=== PATIENT | female | born 1995 | race Caucasian/White ===

== ENCOUNTER → 2016-11-08 | Outpatient (CLI) | payer BC | END | disposition home or self-care (01) | LOC: CDC 10:47 | DX: Z01.818 Encounter for other preprocedural examination (principal); E66.01 Morbid (severe) obesity due to excess calories | CPT/HCPCS: 93000 ==

== ENCOUNTER 2016-11-21 05:41 | Inpatient (IN) | payer BC ==
[~2016-11-21] VITALS: Ht 165.1 cm; Wt 138.4 kg
[2016-11-21 06:07] LABS: POINT-OF-CARE METER ID UU14174212
[2016-11-21 06:14] VITALS: BP 165/85
[2016-11-21 07:22] LABS: METH RESISTANT S AUREUS PCR NEGATIVE (NEGATIVE); PROBE CHECK PASS; SPECIMEN PROCESSING CONTROL PASS
[2016-11-21 12:11] LABS: POINT-OF-CARE METER ID UU13113675
[2016-11-21 13:14] VITALS: BP 130/71
[2016-11-21 15:40] VITALS: BP 116/58
[2016-11-21 19:13] VITALS: BP 128/74
[2016-11-21 22:42] VITALS: BP 126/60
[2016-11-21 23:45] VITALS: BP 126/60
[2016-11-22 03:15] VITALS: BP 133/73
[2016-11-22 06:37] LABS: HEMATOCRIT 37.1 % (36.0-46.0); MCH 27.7 PG (29.0-34.0); MCHC 34.5 G/DL (30.0-36.0); MCV 80.3 FL (83-99); MEAN PLAT.VOLUME 11.3 uM^3 (9.5-12.4); PLATELET COUNT 264 K/uL (156-360); RBC DIS.WIDTH-CV 13.3 % (11.8-14.6); RBC DIS.WIDTH-SD 38.6 % (39-53); RED BLOOD COUNT 4.62 M/uL (3.80-5.20)
[2016-11-22 06:43] LABS: WHITE BLOOD COUNT 11.4 K/uL (4.1-10.2)
[2016-11-22 07:00] VITALS: BP 140/80
[2016-11-22 07:06] LABS: ANION GAP 10 MEQ/L (2-14); CHLORIDE 105 MEQ/L (99-109); GFR ESTIMATE (CALCULATED) > 59 mL/min/; GLUCOSE 112 mg/dL (70-99); MAGNESIUM 1.8 mg/dl (1.3-2.7); POTASSIUM 3.9 MEQ/L (3.7-5.4); SAMPLE HEMOLYSIS CHECK 0; SAMPLE ICTERIC CHECK 0; SAMPLE LIPEMIA CHECK 0; SODIUM 142 MEQ/L (136-147); UREA NITROGEN (BUN) 8 mg/dL (9-23)
[2016-11-22] MEDS ORDERED: ZOFRAN ODT4 MG PO (08:48)
[2016-11-22] MEDS ORDERED: HYDROCODON-ACE1 EAC7 PO (08:48)
[2016-11-22 09:30] VITALS: BP 140/80
== END 2016-11-22 11:43 | disposition home or self-care (01) | DRG 621 ==
LOC: 2SOUTH 05:41 → 2EAST 13:10 → 2SOUTH 13:55 → 2EAST 11-22 11:43
PROVIDERS: Surgery
PROC: 0DB64Z3 Excision of Stomach, Percutaneous Endoscopic Approach, Vertical (ICD-10-PCS; principal; 2016-11-21)
DX: E66.01 Morbid (severe) obesity due to excess calories (principal); Z68.43 Body mass index [BMI] 50.0-59.9, adult; K21.9 Gastro-esophageal reflux disease without esophagitis; Z86.14 Personal history of Methicillin resistant Staphylococcus aureus infection
CPT/HCPCS: 80048; 82948; 83735; 84100; 85027; 87641; C9113; J0330; J0690; J1100; J1170; J1644; J1650; J1815; J1885; J2250; J2270; J2405; J2550; J2710; J2765; J3010; J3480; J7120; S0020

== ENCOUNTER 2017-09-16 22:12 | Emergency (ER) | payer BC ==
[~2017-09-16] VITALS: Ht 165.1 cm; Wt 72.4 kg
[~2017-09-16 22:12] MED LIST: HYDROCODON-ACE1 EAC7 PO; ZOFRAN ODT4 MG PO
[2017-09-17] MEDS ORDERED: MOTRIN600 MG PO (00:53)
[2017-09-17 00:59] VITALS: BP 99/81
== END 2017-09-17 01:05 | disposition home or self-care (01) ==
LOC: EME 22:12
DX: S60.222A Contusion of left hand, initial encounter (principal); W22.8XXA Striking against or struck by other objects, initial encounter
CPT/HCPCS: 73130; 99281; 99283

== ENCOUNTER 2018-05-24 04:13 | Inpatient (IN) | payer BC ==
[~2018-05-24] VITALS: Ht 165.1 cm; Wt 78.1 kg
[~2018-05-24 04:13] MED LIST changes: +MOTRIN600 MG PO
[2018-05-24 04:57] LABS: HEMOGLOBIN 11.1 G/DL (11.9-15.5); MCH 30.1 PG (29.0-34.0); MCHC 35.8 G/DL (30.0-36.0); PLATELET COUNT 154 K/uL (156-360); RBC DIS.WIDTH-SD 43.5 % (39-53); RED BLOOD COUNT 3.69 M/uL (3.80-5.20); WHITE BLOOD COUNT 4.8 K/uL (4.1-10.2)
[2018-05-24 05:00] LABS: BASOPHIL (%) 0.2 % (0-1); EOSINOPHIL (%) 0.4 % (0-5); IMMATURE GRANULOCYTE (%) 0.6 % (0.0-0.7); LYMPHOCYTE (%) 5.7 % (15-42); LYMPHOCYTE COUNT 0.3 K/uL (1.0-2.8); MONOCYTE (%) 1.1 % (3-12); MONOCYTE COUNT 0.1 K/uL (0-0.8); NEUTROPHIL COUNT 4.3 K/uL (1.8-6.4)
[2018-05-24 05:09] LABS: CHLORIDE 108 mEq/L (99-109); POTASSIUM 3.6 mEq/L (3.7-5.4); SODIUM 136 mEq/L (136-147)
[2018-05-24 05:11] LABS: GLUCOSE 97 mg/dL (70-99)
[2018-05-24 05:14] LABS: CREATININE 0.5 mg/dL (0.6-1.3); GFR ESTIMATE (CALCULATED) > 59 mL/min/
[2018-05-24 05:15] LABS: UREA NITROGEN (BUN) 14 mg/dL (9-23)
[2018-05-24 05:47] LABS: APPEARANCE SL.HAZY ((CLEAR)); BILIRUBIN NEGATIVE; BLOOD SMALL; COLOR YELLOW ((YELLOW)); GLUCOSE (STRIP) NEGATIVE; KETONES NEGATIVE; LEUKOCYTES LARGE; NITRITE NEGATIVE; PROTEIN (STRIP) NEGATIVE; SPECIFIC GRAVITY 1.014 (1.000-1.030); UROBILINOGEN 0.2 MG/DL (0.2-1.0)
[2018-05-24 05:53] LABS: BACTERIA RARE /HPF; EPITHELIAL CELLS 1+ /HPF; MUCUS TRACE /LPF; UCUL ADDED? YES; WHITE BLOOD CELLS TNTC /HPF (0-5)
[2018-05-24 06:30] VITALS: BP 100/52
[2018-05-24] MEDS ORDERED: PRENATAL TABLE1 EAC3 PO (07:42)
[2018-05-24 10:49] VITALS: BP 95/51
[2018-05-24 16:00] VITALS: BP 109/52
[2018-05-24 19:22] VITALS: BP 111/55
[2018-05-25 03:19] VITALS: BP 111/53
[2018-05-25 06:31] LABS: BASOPHIL (%) 0.4 % (0-1); EOSINOPHIL COUNT 0.1 K/uL (0-0.3); HEMATOCRIT 25.4 % (36.0-46.0); IMMATURE GRANULOCYTE (%) 0.6 % (0.0-0.7); LYMPHOCYTE (%) 16.5 % (15-42); LYMPHOCYTE COUNT 1.6 K/uL (1.0-2.8); MCV 85.5 FL (83-99); NEUTROPHIL (%) 71.5 % (45-76); NEUTROPHIL COUNT 6.9 K/uL (1.8-6.4); PLATELET COUNT 121 K/uL (156-360); RBC DIS.WIDTH-CV 14.4 % (11.8-14.6); RBC DIS.WIDTH-SD 44.8 % (39-53); RED BLOOD COUNT 2.97 M/uL (3.80-5.20); WHITE BLOOD COUNT 9.7 K/uL (4.1-10.2)
[2018-05-25 06:33] LABS: HEMOGLOBIN 8.9 G/DL (11.9-15.5)
[2018-05-25 08:15] VITALS: BP 115/53
[2018-05-25 11:58] VITALS: BP 112/51
[2018-05-25 15:01] VITALS: BP 113/54
[2018-05-25] MEDS ORDERED: FOLIC ACID1 MG PO (16:33)
[2018-05-25] MEDS ORDERED: DECARA50000 UNIT PO (16:34)
[2018-05-25] MEDS ORDERED: CYANOCOBALAM1000 MCG PO (16:34)
[2018-05-25] MEDS ORDERED: ASCORBIC ACID100 MG PO (16:40)
[2018-05-25 19:43] VITALS: BP 106/51
[2018-05-25 22:05] VITALS: BP 106/46
[2018-05-26 02:30] VITALS: BP 88/44
[2018-05-26 02:37] VITALS: BP 95/42
[2018-05-26 05:20] LABS: BASOPHIL (%) 0.7 % (0-1); EOSINOPHIL (%) 1.1 % (0-5); EOSINOPHIL COUNT 0.1 K/uL (0-0.3); HEMATOCRIT 23.9 % (36.0-46.0); HEMOGLOBIN 8.4 G/DL (11.9-15.5); IMMATURE GRANULOCYTE (%) 0.8 % (0.0-0.7); LYMPHOCYTE (%) 21.1 % (15-42); LYMPHOCYTE COUNT 1.3 K/uL (1.0-2.8); MCH 30.4 PG (29.0-34.0); MCHC 35.1 G/DL (30.0-36.0); MCV 86.6 FL (83-99); MONOCYTE COUNT 0.8 K/uL (0-0.8); NEUTROPHIL (%) 63.3 % (45-76); NEUTROPHIL COUNT 3.9 K/uL (1.8-6.4); PLATELET COUNT 118 K/uL (156-360); RBC DIS.WIDTH-CV 14.5 % (11.8-14.6); RBC DIS.WIDTH-SD 46.1 % (39-53); RED BLOOD COUNT 2.76 M/uL (3.80-5.20); WHITE BLOOD COUNT 6.2 K/uL (4.1-10.2)
[2018-05-26 07:33] VITALS: BP 108/59
[2018-05-26] MEDS ORDERED: MACROBID100 MG PO (10:30)
== END 2018-05-26 11:31 | disposition home or self-care (01) | DRG 781 ==
LOC: EME 04:13 → LDRP-OP 04:13 → EME 06:30 → 2WEST 06:31 → EDSTATUS 06:41 → 2WEST 05-25 07:51
PROVIDERS: Obstetrics & Gynecology Gynecology
DX: O23.02 Infections of kidney in pregnancy, second trimester (principal); N13.6 Pyonephrosis; O99.612 Diseases of the digestive system complicating pregnancy, second trimester; K21.9 Gastro-esophageal reflux disease without esophagitis; O99.112 Other diseases of the blood and blood-forming organs and certain disorders involving the immune mechanism complicating pregnancy, second trimester; B96.20 Unspecified Escherichia coli [E. coli] as the cause of diseases classified elsewhere; D69.6 Thrombocytopenia, unspecified; Z3A.21 21 weeks gestation of pregnancy
CPT/HCPCS: 76770; 80048; 81003; 83605; 84702; 85025; 85027; 87040; 87077; 87086; 87186; 87801; 99281; 99284; G0378; J0696; J7030; J7120